=== PATIENT | female | born 1990 | race Caucasian/White ===

== ENCOUNTER 2017-06-30 19:58 | Emergency (ER) | payer MEDICAID ==
--- NOTE | 2017-06-30 20:53 | EDM.PDOC ---
ED HPI GENERAL MEDICAL PROBLEM - General Chief Complaint: Abdominal Pain Stated Complaint: SEVERE ABD PAIN Time Seen by Provider: 06/30/17 20:30 Source of Information: Reports: Patient History Limitations: Reports: No Limitations - History of Present Illness INITIAL COMMENTS - FREE TEXT/NARRATIVE: 27-year-old female who has had some chronic recurring abdominal pain for several months presents today with one of her "worst days". She has chronic diarrhea with an occasional fairly normal bowel movement. She had a recent colonoscopy which was normal. No fevers or chills. The pain tends to be from the epigastric through the middle of the abdomen down to the suprapubic area, no distention or radiation of pain to the back on a consistent basis. Onset: Unknown/Unsure Severity: Mild Associated Symptoms: Denies: Fever/Chills, Malaise, Nausea/Vomiting, Shortness of Breath epigastric Pain Score (Numeric/FACES): 5 - Related Data Allergies Allergy/AdvReac Type Severity Reaction Status Date / Time No Known Allergies Allergy Verified 06/30/17 20:19 Home Meds: Home Meds NK [No Known Home Meds] 02/25/14 [History] Past Medical History - Past Health History Medical/Surgical History: Denies Medical/Surgical History Gastrointestinal History: Reports: Chronic Diarrhea Endocrine/Metabolic History: Reports: Obesity/BMI 30+ - Infectious Disease History Infectious Disease History: Reports: Chicken Pox - Past Surgical History GI Surgical History: Reports: Colonoscopy Social & Family History - Tobacco Use Smoking Status *Q: Current Every Day Smoker Years of Tobacco use: 8 Packs/Tins Daily: 0.5 - Caffeine Use Caffeine Use: Reports: Coffee, Energy Drinks, Soda - Alcohol Use Days Per Week of Alcohol Use: 2 Number of Drinks Per Day: 3 Total Drinks Per Week: 6 - Recreational Drug Use Recreational Drug Use: No ED ROS GENERAL - Review of Systems Review Of Systems: See Below Constitutional: Reports: Malaise. Denies: Fever, Chills Respiratory: Denies: Shortness of Breath Cardiovascular: Denies: Chest Pain GI/Abdominal: Reports: Abdominal Pain, Diarrhea. Denies: Nausea, Vomiting : Reports: No Symptoms Skin: Reports: No Symptoms Neurological: Denies: Headache Psychiatric: Reports: No Symptoms ED EXAM, GI/ABD - Physical Exam Exam: See Below Exam Limited By: No Limitations General Appearance: Alert, No Apparent Distress Eyes: Bilateral: Normal Appearance (No jaundice) Head: Atraumatic Respiratory/Chest: No Respiratory Distress GI/Abdominal Exam: Soft, Tender (Reacts with tenderness to palpation from the epigastric area to the central abdomen, no guarding or rebound) Extremities: No: Pedal Edema Neurological: Alert, Oriented, Normal Cognition Psychiatric: Normal Affect, Normal Mood Skin Exam: Warm, Dry, No Rash Course - Vital Signs Last Recorded V/S: Last Vital Signs Temp 101.1 F H 06/30/17 23:18 Pulse 78 06/30/17 23:18 Resp 17 06/30/17 23:18 BP 122/62 06/30/17 23:18 Pulse Ox 100 06/30/17 23:18 - Orders/Labs/Meds Orders: Active Orders 24 hr Category Date Time Status Abdomen Pelvis w Cont [CT] Stat Exams 06/30/17 21:27 Taken Labs: Laboratory Tests 06/30/17 06/30/17 06/30/17 Range/Units 20:56 20:56 21:55 WBC 9.3 (4.5-11.0) K/uL RBC 4.79 (3.30-5.50) M/uL Hgb 13.5 (12.0-15.0) g/dL Hct 41.6 (36.0-48.0) % MCV 87 (80-98) fL MCH 28 (27-31) pg MCHC 33 (32-36) % Plt Count 217 (150-400) K/uL Neut % (Auto) 84 H (36-66) % Lymph % (Auto) 8 L (24-44) % [place] % (Auto) 6 (2-6) % Eos % (Auto) 2 (2-4) % Baso % (Auto) 0 (0-1) % Sodium 140 (140-148) mmol/L Potassium 4.1 (3.6-5.2) mmol/L Chloride 106 (100-108) mmol/L Carbon Dioxide 27 (21-32) mmol/L Anion Gap 6.9 (5.0-14.0) mmol/L BUN 14 D (7-18) mg/dL Creatinine 0.9 (0.6-1.0) mg/dL Est Cr Clr Drug Dosing 85.24 mL/min Estimated GFR (MDRD) > 60 (>60) Glucose 99 (74-106) mg/dL Calcium 8.4 L (8.5-10.1) mg/dL Total Bilirubin 0.7 D (0.2-1.0) mg/dL AST 19 (15-37) U/L ALT 34 (12-78) U/L Alkaline Phosphatase 51 (46-116) U/L Total Protein 7.1 (6.4-8.2) g/dL Albumin 3.5 (3.4-5.0) g/dL Globulin 3.6 H (2.3-3.5) g/dL Albumin/Globulin Ratio 1.0 L (1.2-2.2) Amylase 63 (25-115) U/L Lipase 118 (73-393) U/L HCG, Qual Negative Meds: Medications Discontinued Medications Generic Name Dose Route Start Last Admin Trade Name Freq PRN Reason Stop Dose Admin Sodium Chloride 85 mls @ 3.5 mls/sec 06/30/17 22:00 06/30/17 22:19 Normal Saline IV 3.5 mls/sec ASDIRECTED PRATIK Administration Iopamidol 150 ml 06/30/17 21:57 06/30/17 22:19 Isovue-300 (61%) IV 07/01/17 21:58 150 ml . DIRECTED PRN Administration RADIOLOGY EXAM Sodium Chloride 10 ml 06/30/17 21:57 06/30/17 22:19 Saline Flush FLUSH 10 ml ONETIME PRN Administration per radiology protocol - Re-Assessments/Exams Free Text/Narrative Re-Assessment/Exam: 06/30/17 22:21 CBC, CMP, amylase, lipase, serum were obtained. 06/30/17 22:21 Labs were all basically normal. A CT of the abdomen and pelvis with IV contrast was then obtained. 06/30/17 23:42 CT was completely normal. Patient will try a trial of daily omeprazole for 2-3 weeks Departure - Departure Time of Disposition: 23:35 Disposition: Home, Self-Care 01 Condition: Good Clinical Impression: Abdominal pain Qualifiers: Abdominal location: epigastric Qualified Code(s): R10.13 - Epigastric pain - Discharge Information Instructions: Abdominal Pain, Adult, [id number] Referrals: PCP,None [Primary Care Provider] - Forms: ED Department Discharge Care Plan Goals: Try 1 dose of omeprazole daily 20 minutes before eating your first meal. Take consistently for at least 2-3 weeks. Recheck with a primary physician in the next 2-3 weeks for follow-up. Return sooner if worsening or concerns. - My Orders Last 24 Hours: My Active Orders 06/30/17 21:27 Abdomen Pelvis w Cont [CT] Stat - Assessment/Plan Last 24 Hours: My Active Orders 06/30/17 21:27 Abdomen Pelvis w Cont [CT] Stat
[2017-06-30] MEDS ORDERED: Sodium Chloride 0.9% 10 ML Syringe FLUSH PRN (21:57)
[2017-06-30] MEDS ORDERED: Iopamidol 612 MG/ML 150 ML Bottle IV PRN (21:57)
[2017-06-30 23:19] VITALS: BP 122/62
== END 2017-06-30 23:35 | disposition home or self-care (01) ==
LOC: JP.ED 19:58
DX: R10.13 Epigastric pain (principal); F17.210 Nicotine dependence, cigarettes, uncomplicated; E66.9 Obesity, unspecified
CPT/HCPCS: 36415; 74177; 80053; 82150; 83690; 84703; 85025; 99284; J7030; J7050

== ENCOUNTER 2017-11-26 12:00 | Emergency (ER) | payer MEDICAID ==
[2017-11-26] MEDS ORDERED: Sodium Chloride 0.9% 10 ML Syringe FLUSH PRN (12:38)
[2017-11-26] MEDS ORDERED: Sodium Chloride 0.9% 1,000 ML IV SCH (13:30)
[2017-11-26 13:35] VITALS: BP 130/70
--- NOTE | 2017-11-26 13:45 | CT ---
Head wo Cont CLINICAL HISTORY: Headache, blurred vision, confusion COMPARISON: None TECHNIQUE: Transverse scans were obtained from the base of the skull through the vertex without IV co ntrast on a multislice, multidetector CT scanner. Auto dosage reduction and iterative reconstruction techniques employed. FINDINGS: No focal abnormal parenchymal density is identified. There is no mass effect, hemorrhage, o r extraaxial collection. The basal cisterns and sulci over the convexities are essentially normal. Th e ventricles are normal for age. IMPRESSION: Normal noncontrast CT brain for age
[2017-11-26] MEDS ORDERED: Ketorolac 30 MG/ML SDV IVPUSH ONE (14:15)
--- NOTE | 2017-11-26 14:21 | EDM.PDOC ---
ED HPI GENERAL MEDICAL PROBLEM - General Chief Complaint: Headache Stated Complaint: HEADACHE,BLURRED VISION Time Seen by Provider: 11/26/17 12:30 Source of Information: Reports: Patient History Limitations: Reports: No Limitations - History of Present Illness INITIAL COMMENTS - FREE TEXT/NARRATIVE: pt arrived with a history of a left sided headache. She had blurred vision at this time. She felt like she was confused. She was much btter on arrival. Her headache was down to a 2. At the time of the incident she had some tingling in her rt arm. She was not nauseated and she did not vomit. She hs normal vision at this time. She does have a history of a migraine. Onset: Today, Sudden, Other ( Pt was at work and felt like she did not know what was going on. ) Duration: Minutes:, Other ( The situation was clearing by the time she arrived. ) Location: Reports: Head, Lower Extremity, Right, Other (pt did have a left sided headache. ) Associated Symptoms: Reports: Confusion, Headaches Left Headache Pain Score (Numeric/FACES): 3 - Related Data Allergies Allergy/AdvReac Type Severity Reaction Status Date / Time No Known Allergies Allergy Verified 06/30/17 20:19 Home Meds: Home Meds NK [No Known Home Meds] 02/25/14 [History] Past Medical History - Past Health History Medical/Surgical History: Denies Medical/Surgical History Gastrointestinal History: Reports: Chronic Diarrhea Neurological History: Reports: Migraines Endocrine/Metabolic History: Reports: Obesity/BMI 30+ - Infectious Disease History Infectious Disease History: Reports: Chicken Pox - Past Surgical History GI Surgical History: Reports: Colonoscopy Social & Family History - Tobacco Use Smoking Status *Q: Heavy Tobacco Smoker Years of Tobacco use: 10 Packs/Tins Daily: 0.5 - Caffeine Use Caffeine Use: Reports: None - Alcohol Use Days Per Week of Alcohol Use: 2 Number of Drinks Per Day: 3 Total Drinks Per Week: 6 - Recreational Drug Use Recreational Drug Use: No ED ROS GENERAL - Review of Systems Review Of Systems: See Below Constitutional: Reports: No Symptoms HEENT: Reports: Vision Change Respiratory: Reports: No Symptoms Cardiovascular: Reports: No Symptoms Endocrine: Reports: No Symptoms GI/Abdominal: Reports: No Symptoms : Reports: No Symptoms Musculoskeletal: Reports: No Symptoms Skin: Reports: No Symptoms - Physical Exam Exam: See Below Text/Narrative:: Pt had a sudden on set of a headache, confusion and blurred vision. She did have tingling in the left arm. Exam Limited By: No Limitations General Appearance: Alert, Anxious, Moderate Distress, Other (Pain was being rated down at a 2. pupils are equal and reactive. ) Ears: Normal TMs Nose: Normal Inspection Throat/Mouth: Normal Inspection Head Exam: Atraumatic Neck: Normal Inspection Respiratory/Chest: No Respiratory Distress Cardiovascular: Regular Rate, Rhythm GI/Abdominal: Soft, Non-Tender (Female) Exam: Deferred Rectal (Female) Exam: Deferred Neuro Exam (Abbreviated): Alert, Oriented, Normal Cognition, Other (pt had been mildly confused earlier. ) Back Exam: Normal Inspection Extremities: Normal Inspection Psychiatric: Normal Affect Course - Vital Signs Last Recorded V/S: Last Vital Signs Temp 37.2 C 11/26/17 12:29 Pulse 55 L 11/26/17 13:34 Resp 14 11/26/17 13:34 BP 130/70 11/26/17 13:34 Pulse Ox 99 11/26/17 13:34 - Orders/Labs/Meds Orders: Active Orders 24 hr Category Date Time Status UA W/MICROSCOPIC [URIN] Urgent Lab 11/26/17 14:04 Ordered Saline Lock Insert [OM.PC] Routine Oth 11/26/17 12:38 Ordered Labs: Laboratory Tests 11/26/17 11/26/17 11/26/17 Range/Units 12:40 12:40 14:04 WBC 7.5 (4.5-11.0) K/uL RBC 4.75 (3.30-5.50) M/uL Hgb 13.0 (12.0-15.0) g/dL Hct 40.3 (36.0-48.0) % MCV 85 (80-98) fL MCH 27 (27-31) pg MCHC 32 (32-36) % Plt Count 274 (150-400) K/uL Neut % (Auto) 56 (36-66) % Lymph % (Auto) 29 (24-44) % [place] % (Auto) 11 H (2-6) % Eos % (Auto) 4 (2-4) % Baso % (Auto) 0 (0-1) % Sodium 142 (140-148) mmol/L Potassium 4.2 (3.6-5.2) mmol/L Chloride 106 (100-108) mmol/L Carbon Dioxide 27 (21-32) mmol/L Anion Gap 8.7 (5.0-14.0) mmol/L BUN 12 (7-18) mg/dL Creatinine 0.9 (0.6-1.0) mg/dL Est Cr Clr Drug Dosing 85.24 mL/min Estimated GFR (MDRD) > 60 (>60) Glucose 93 (74-106) mg/dL Calcium 8.6 (8.5-10.1) mg/dL Total Bilirubin 0.4 (0.2-1.0) mg/dL AST 13 L (15-37) U/L ALT 25 (12-78) U/L Alkaline Phosphatase 51 (46-116) U/L Total Protein 7.3 (6.4-8.2) g/dL Albumin 3.5 (3.4-5.0) g/dL Globulin 3.8 H (2.3-3.5) g/dL Albumin/Globulin Ratio 0.9 L (1.2-2.2) Urine Color Yellow Urine Appearance Clear Urine pH 6.0 (4.5-8.0) Ur Specific [place] 1.010 (1.008-1.030) Urine Protein Negative (NEGATIVE) mg/dL Urine Glucose (UA) Normal (NEGATIVE) mg/dL Urine Ketones Negative (NEGATIVE) mg/dL Urine Occult Blood Negative (NEGATIVE) Urine Nitrite Negative (NEGATIVE) Urine Bilirubin Negative (NEGATIVE) Urine Urobilinogen Normal (NORMAL) mg/dL Ur Leukocyte Esterase Negative (NEGATIVE) Urine RBC 0-5 (0-5) Urine WBC 0-5 (0-5) Ur Epithelial Cells Few Amorphous Sediment Not seen Urine Bacteria Rare Urine Mucus Not seen Meds: Medications Discontinued Medications Generic Name Dose Route Start Last Admin Trade Name Freq PRN Reason Stop Dose Admin Sodium Chloride 1,000 mls @ 999 mls/hr 11/26/17 13:30 11/26/17 13:32 Normal Saline IV 999 mls/hr ASDIRECTED PRATIK Administration Ketorolac Tromethamine 30 mg 11/26/17 14:15 11/26/17 14:18 Toradol IVPUSH 11/26/17 14:16 30 mg ONETIME ONE Administration Sodium Chloride 10 ml 11/26/17 12:38 11/26/17 12:46 Saline Flush FLUSH 10 ml ASDIRECTED PRN Administration Keep Vein Open - Re-Assessments/Exams Free Text/Narrative Re-Assessment/Exam: 11/26/17 14:25 pt had a cat scan of the head which was normal . Her lab work was normal. She is much more comfortable. Departure - Departure Time of Disposition: 15:05 Disposition: Home, Self-Care 01 Condition: Fair Clinical Impression: Migraine headache - Discharge Information Instructions: Migraine Headache Referrals: PCP,None [Primary Care Provider] - Forms: ED Department Discharge Care Plan Goals: rtc for MRI of the head, schedule a follow up appt with Marissa sierra or sat of next week. rtc if increased problems. - My Orders Last 24 Hours: My Active Orders 11/26/17 12:38 Saline Lock Insert [OM.PC] Routine 11/26/17 14:04 UA W/MICROSCOPIC [URIN] Urgent - Assessment/Plan Last 24 Hours: My Active Orders 11/26/17 12:38 Saline Lock Insert [OM.PC] Routine 11/26/17 14:04 UA W/MICROSCOPIC [URIN] Urgent
== END 2017-11-26 15:02 | disposition home or self-care (01) ==
LOC: JP.ED 12:00
DX: G43.909 Migraine, unspecified, not intractable, without status migrainosus (principal); F17.210 Nicotine dependence, cigarettes, uncomplicated; E66.9 Obesity, unspecified
CPT/HCPCS: 36415; 70450; 80053; 81001; 85025; 96374; 99284; J1885; J7040; J7050

== ENCOUNTER 2018-01-02 23:32 | Emergency (ER) | payer MEDICAID ==
[2018-01-02 23:57] VITALS: BP 149/86
--- NOTE | 2018-01-03 01:22 | EDM.PDOC ---
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 She reports went to the bathroom, had tinged pink blood on toilet tissue, then past a tiny clot. she is taking pogesterone po daily. last clinic appointment with Winifred Brand, nurse cell coverer on 01/01/18 scheduled for OB Ultrasound after 01/13/18. Onset: Today Duration: Hour(s): Location: Reports: Abdomen Quality: Reports: Other (denies any cramping or low back pain.) Improves with: Reports: None Worsens with: Reports: None Associated Symptoms: Reports: No Other Symptoms - Related Data Allergies Allergy/AdvReac Type Severity Reaction Status Date / Time No Known Allergies Allergy Verified 06/30/17 20:19 Home Meds: Home Meds NK [No Known Home Meds] 02/25/14 [History] Past Medical History - Past Health History Medical/Surgical History: Denies Medical/Surgical History Gastrointestinal History: Reports: Chronic Diarrhea Neurological History: Reports: Migraines Endocrine/Metabolic History: Reports: Obesity/BMI 30+ - Infectious Disease History Infectious Disease History: Reports: Chicken Pox - Past Surgical History GI Surgical History: Reports: Colonoscopy Social & Family History - Tobacco Use Smoking Status *Q: Former Smoker Used Tobacco, but Quit: Yes Month/Year Tobacco Last Used: december 2017 - Caffeine Use Caffeine Use: Reports: None - Recreational Drug Use Recreational Drug Use: No - Living Situation & Occupation Living situation: Reports: with Significant Other ED ROS GENERAL - Review of Systems Review Of Systems: See Below Constitutional: Reports: No Symptoms GI/Abdominal: Reports: No Symptoms : Reports: Other (tinged pink discharge on tissue) Musculoskeletal: Reports: No Symptoms Skin: Reports: No Symptoms Neurological: Reports: No Symptoms Psychiatric: Reports: No Symptoms Hematologic/Lymphatic: Reports: No Symptoms Immunologic: Reports: No Symptoms ED EXAM, GI/ABD - Physical Exam Exam: See Below Exam Limited By: No Limitations General Appearance: Alert, WD/WN, No Apparent Distress Eyes: Bilateral: Normal Appearance, EOMI Ears: Normal External Exam, Normal Canal, Hearing Grossly Normal, Normal TMs Nose: Normal Inspection, Normal Mucosa, No Blood Throat/Mouth: Normal Inspection, Normal Lips, Normal Teeth, Normal Gums, Normal Oropharynx, Normal Voice, No Airway Compromise Head: Atraumatic, Normocephalic Neck: Normal Inspection, Supple, Non-Tender, Full Range of Motion Respiratory/Chest: No Respiratory Distress, Lungs Clear, Normal Breath Sounds, No Accessory Muscle Use, Chest Non-Tender Cardiovascular: Normal Peripheral Pulses, Regular Rate, Rhythm, No Edema, No Gallop, No JVD, No Murmur, No Rub GI/Abdominal Exam: Normal Bowel Sounds, Soft, Non-Tender, No Organomegaly, No Distention, No Abnormal Bruit, No Mass, Pelvis Stable (Female) Exam: Deferred Rectal (Female) Exam: Deferred Back Exam: Normal Inspection, Full Range of Motion, NT Extremities: Normal Inspection, Normal Range of Motion, Non-Tender, Normal Capillary Refill, No Pedal Edema Neurological: No Motor/Sensory Deficits Psychiatric: Normal Affect, Normal Mood Skin Exam: Warm, Dry, Intact, Normal Color, No Rash Lymphatic: No Adenopathy Course - Vital Signs Last Recorded V/S: Last Vital Signs Temp 36.7 C 01/02/18 23:56 Pulse 60 01/02/18 23:56 Resp 16 01/02/18 23:56 BP 149/86 H 01/02/18 23:56 Pulse Ox 100 01/02/18 23:56 - Orders/Labs/Meds Orders: Active Orders 24 hr Category Date Time Status UA W/MICROSCOPIC [URIN] Urgent Lab 01/03/18 00:43 Ordered Labs: Laboratory Tests 01/03/18 01/03/18 01/03/18 Range/Units 00:36 00:36 00:36 WBC 9.6 (4.5-11.0) K/uL RBC 4.68 (3.30-5.50) M/uL Hgb 12.9 (12.0-15.0) g/dL Hct 39.8 (36.0-48.0) % MCV 85 (80-98) fL MCH 28 (27-31) pg MCHC 32 (32-36) % Plt Count 298 (150-400) K/uL Neut % (Auto) 57 (36-66) % Lymph % (Auto) 29 (24-44) % [place] % (Auto) 11 H (2-6) % Eos % (Auto) 3 (2-4) % Baso % (Auto) 0 (0-1) % Sodium 140 (140-148) mmol/L Potassium 3.5 L (3.6-5.2) mmol/L Chloride 105 (100-108) mmol/L Carbon Dioxide 28 (21-32) mmol/L Anion Gap 10.5 (5.0-14.0) mmol/L BUN 7 (7-18) mg/dL Creatinine 0.9 (0.6-1.0) mg/dL Est Cr Clr Drug Dosing 85.24 mL/min Estimated GFR (MDRD) > 60 (>60) Glucose 107 H (74-106) mg/dL Calcium 8.9 (8.5-10.1) mg/dL HCG, Quant 1650 H (0-6) mIU/mL Urine Color Urine Appearance Urine pH (4.5-8.0) Ur Specific [place] (1.008-1.030) Urine Protein (NEGATIVE) mg/dL Urine Glucose (UA) (NEGATIVE) mg/dL Urine Ketones (NEGATIVE) mg/dL Urine Occult Blood (NEGATIVE) Urine Nitrite (NEGATIVE) Urine Bilirubin (NEGATIVE) Urine Urobilinogen (NORMAL) mg/dL Ur Leukocyte Esterase (NEGATIVE) Urine RBC (0-5) Urine WBC (0-5) Ur Epithelial Cells Amorphous Sediment Urine Bacteria Urine Mucus 01/03/18 Range/Units 00:43 WBC (4.5-11.0) K/uL RBC (3.30-5.50) M/uL Hgb (12.0-15.0) g/dL Hct (36.0-48.0) % MCV (80-98) fL MCH (27-31) pg MCHC (32-36) % Plt Count (150-400) K/uL Neut % (Auto) (36-66) % Lymph % (Auto) (24-44) % [place] % (Auto) (2-6) % Eos % (Auto) (2-4) % Baso % (Auto) (0-1) % Sodium (140-148) mmol/L Potassium (3.6-5.2) mmol/L Chloride (100-108) mmol/L Carbon Dioxide (21-32) mmol/L Anion Gap (5.0-14.0) mmol/L BUN (7-18) mg/dL Creatinine (0.6-1.0) mg/dL Est Cr Clr Drug Dosing mL/min Estimated GFR (MDRD) (>60) Glucose (74-106) mg/dL Calcium (8.5-10.1) mg/dL HCG, Quant (0-6) mIU/mL Urine Color Yellow Urine Appearance Clear Urine pH 5.0 (4.5-8.0) Ur Specific [place] 1.020 (1.008-1.030) Urine Protein Negative (NEGATIVE) mg/dL Urine Glucose (UA) Normal (NEGATIVE) mg/dL Urine Ketones Negative (NEGATIVE) mg/dL Urine Occult Blood Moderate (NEGATIVE) Urine Nitrite Negative (NEGATIVE) Urine Bilirubin Negative (NEGATIVE) Urine Urobilinogen Normal (NORMAL) mg/dL Ur Leukocyte Esterase Negative (NEGATIVE) Urine RBC 0-5 (0-5) Urine WBC 0-5 (0-5) Ur Epithelial Cells Few Amorphous Sediment Not seen Urine Bacteria Few Urine Mucus Not seen - Re-Assessments/Exams Free Text/Narrative Re-Assessment/Exam: 01/03/18 01:25 labs; cbc and chemistry normal urine negative for infection quant hcg pending v 01/03/18 01:44 quant hcg 12/30/17: 303 01/01/18: 694 01/03/18: 1650 discussed with Ms. Dasilva, this is reassuring. advise to go home, rest, pelvic rest, drink 8 to 10 glasses of water per day, call her OB in am. Ms. Dasilva and her Partner agree with plan of care. Departure - Departure Time of Disposition: 01:50 Disposition: Home, Self-Care 01 Condition: Good Clinical Impression: Spotting affecting in first trimester - Discharge Information Instructions: Vaginal Bleeding During , First Trimester Referrals: PCP,None [Primary Care Provider] - Forms: ED Department Discharge Care Plan Goals: potting in -pelvic rest for next 10 days -drink plenty of water, 8 to 10 glasses per day -eat healthy -take medications as prescribed follow up with Primary OB provider in am return to ER for any shaking chills, increase pain, cramping, sudden gush of fluids, or any concerns. - Problem List & Annotations (1) Spotting affecting in first trimester SNOMED Code(s): 699056159, 817767459, [id number] Code(s): O26.851 - SPOTTING COMPLICATING , FIRST TRIMESTER Status : Acute Priority: High Current Visit: Yes - Problem List Review Problem List Initiated/Reviewed/Updated: Yes - My Orders Last 24 Hours: My Active Orders 01/03/18 00:43 UA W/MICROSCOPIC [URIN] Urgent - Assessment/Plan Last 24 Hours: My Active Orders 01/03/18 00:43 UA W/MICROSCOPIC [URIN] Urgent Plan: Spotting in -pelvic rest for next 10 days -drink plenty of water, 8 to 10 glasses per day -eat healthy -take medications as prescribed follow up with Primary OB provider in am return to ER for any shaking chills, increase pain, cramping, sudden gush of fluids, or any concerns.
== END 2018-01-03 02:00 | disposition home or self-care (01) ==
LOC: JP.ED 23:32
DX: O26.851 Spotting complicating pregnancy, first trimester (principal); Z3A.01 Less than 8 weeks gestation of pregnancy; Z87.891 Personal history of nicotine dependence
CPT/HCPCS: 36415; 80048; 81001; 84702; 85025; 99284

== ENCOUNTER 2018-12-27 20:38 | Emergency (ER) | payer MEDICAID, OTHER ==
[2018-12-27 20:57] VITALS: BP 139/85
[2018-12-27] MEDS ORDERED: Ketorolac 60 MG/2 ML SDV IM ONE (21:01)
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
--- NOTE | 2018-12-27 21:35 | CRLCR ---
HISTORY: Right wrist pain, injury. TECHNIQUE: Three views of the right wrist. COMPARISON: No prior. FINDINGS: No acute fracture. Ulnar minus variance. Alignment is otherwise maintained. No radiopaque foreign body or soft tissue gas. No erosive change. IMPRESSION: 1. No acute fracture. 2. Ulnar minus variance. Dictated by Gary Bennett MD @ 12/27/2018 9:32:44 PM Dictated by: Gary Bennett MD @ 12/27/2018 21:32:51 (Electronically Signed)
== END 2018-12-27 21:30 | disposition home or self-care (01) ==
LOC: JP.ED 20:38
DX: S63.501A Unspecified sprain of right wrist, initial encounter (principal); F17.210 Nicotine dependence, cigarettes, uncomplicated; F32.9 Major depressive disorder, single episode, unspecified; V89.2XXA Person injured in unspecified motor-vehicle accident, traffic, initial encounter
CPT/HCPCS: 73110; 96372; 99283; J1885

== ENCOUNTER 2019-11-01 21:46 | Emergency (ER) | payer OTHER ==
[2019-11-01 21:58] VITALS: BP 110/50; PULSE 62
--- NOTE | 2019-11-01 23:01 | EDM.PDOC ---
ED HPI GENERAL MEDICAL PROBLEM - General Chief Complaint: Respiratory Problem Stated Complaint: SHORTNESS OF BREATH Time Seen by Provider: 11/01/19 22:10 Source of Information: Reports: Patient, Family History Limitations: Reports: No Limitations - History of Present Illness INITIAL COMMENTS - FREE TEXT/NARRATIVE: 29-year-old female arrives with intermittent shortness of breath, palpitations with activity, and has had several episodes of rectal bleeding over the past 24 hours. She has no pain, no fevers, no cough. She is under a lot of stress and has anxiety. Onset: Unknown/Unsure (For the past several days) Associated Symptoms: Reports: Malaise, Shortness of Breath (Especially with activity). 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: Neurological History: Reports: Migraines Psychiatric History: Reports: Anxiety, Depression, Suicide Attempt Endocrine/Metabolic History: Reports: Obesity/BMI 30+ Dermatologic History: Reports: Eczema - Infectious Disease History Infectious Disease History: Reports: Chicken Pox - Past Surgical History GI Surgical History: Reports: Colonoscopy Social & Family History - Tobacco Use Smoking Status *Q: Current Every Day Smoker Years of Tobacco use: 10 Packs/Tins Daily: 0.3 Second Hand Smoke Exposure: Yes - Caffeine Use Caffeine Use: Reports: Energy Drinks - Recreational Drug Use Recreational Drug Use: No - Living Situation & Occupation Living situation: Reports: with Significant Other ED ROS GENERAL - Review of Systems Review Of Systems: See Below Constitutional: Reports: Malaise. Denies: Fever, Chills HEENT: Denies: Vision Change Respiratory: Reports: Shortness of Breath. Denies: Wheezing Cardiovascular: Denies: Chest Pain GI/Abdominal: Reports: Other (Rectal bleeding). Denies: Abdominal Pain, Nausea , Vomiting : Reports: No Symptoms Skin: Reports: No Symptoms ED EXAM, GENERAL - Physical Exam Exam: See Below Exam Limited By: No Limitations General Appearance: Alert, No Apparent Distress Eye Exam: Bilateral Eye: Normal Inspection Head: Atraumatic Respiratory/Chest: No Respiratory Distress, Lungs Clear Cardiovascular: Regular Rate, Rhythm GI/Abdominal: Soft, Non-Tender Extremities: Normal Inspection Neurological: Alert, Oriented Psychiatric: Anxious Skin Exam: Warm, Dry Course - Vital Signs Last Recorded V/S: Last Vital Signs Temp 96.9 F 11/01/19 22:10 Pulse 62 11/01/19 22:10 Resp 16 11/01/19 22:10 BP 110/50 L 11/01/19 22:10 Pulse Ox 98 11/01/19 22:10 - Orders/Labs/Meds Labs: Laboratory Tests 11/01/19 Range/Units 22:55 WBC 8.2 (4.5-11.0) K/uL RBC 4.58 (3.30-5.50) M/uL Hgb 12.5 (12.0-15.0) g/dL Hct 39.3 (36.0-48.0) % MCV 86 (80-98) fL MCH 27 (27-31) pg MCHC 32 (32-36) % Plt Count 254 (150-400) K/uL Neut % (Auto) 55 (36-66) % Lymph % (Auto) 34 (24-44) % [place] % (Auto) 9 H (2-6) % Eos % (Auto) 3 (2-4) % Baso % (Auto) 0 (0-1) % - Re-Assessments/Exams Free Text/Narrative Re-Assessment/Exam: 11/01/19 23:09 CBC was drawn and is completely normal. Patient had rectal bleeding 2 years ago , it was followed by a colonoscopy which was completely normal. No further work -up necessary unless bleeding persists. Return if worsening or concerns. Departure - Departure Time of Disposition: 23:37 Disposition: Home, Self-Care 01 Clinical Impression: Short of breath on exertion, Rectal bleed - Discharge Information Instructions: Shortness of Breath, Adult, [id number] Referrals: PCP,None [Primary Care Provider] - Forms: ED Department Discharge Care Plan Goals: Recheck in 2 to 3 days if bleeding persists or you develop other concerns. Otherwise increase activity as tolerated, try to decrease smoking and return anytime if you feel you are worsening. Sepsis Event Note - Evaluation Sepsis Screening Result: No Definite Risk - Focused Exam Vital Signs: Vital Signs Temp Pulse Resp BP Pulse Ox 11/01/19 22:10 96.9 F 62 16 110/50 L 98 11/01/19 21:57 96.9 F 62 16 110/50 L 98 Date Exam was Performed: 11/02/19 Time Exam was Performed: 00:21
== END 2019-11-01 23:38 | disposition home or self-care (01) ==
LOC: JP.ED 21:46
DX: R06.02 Shortness of breath (principal); K62.5 Hemorrhage of anus and rectum; F17.210 Nicotine dependence, cigarettes, uncomplicated; F41.9 Anxiety disorder, unspecified; F32.9 Major depressive disorder, single episode, unspecified; E66.9 Obesity, unspecified; Z79.899 Other long term (current) drug therapy
CPT/HCPCS: 36415; 85025; 99284

== ENCOUNTER 2020-12-31 20:08 | Emergency (ER) | payer MEDICAID ==
[2020-12-31 20:25] VITALS: BP 136/70; PULSE 72
--- NOTE | 2020-12-31 20:58 | EDM.PDOC ---
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 She states she has no cramping there was no gush of fluid may be had some trauma as another child in the house did jump on her abdomen. 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: Reports: , Spontaneous Neurological History: Reports: Migraines Psychiatric History: Reports: Anxiety, Depression, Suicide Attempt Endocrine/Metabolic History: Reports: Obesity/BMI 30+ Immunologic History: Reports: None Oncologic (Cancer) History: Reports: None Dermatologic History: Reports: Eczema, None - Infectious Disease History Infectious Disease History: Reports: Chicken Pox, Influenza - Past Surgical History HEENT Surgical History: Reports: None Cardiovascular Surgical History: Reports: None GI Surgical History: Reports: Colonoscopy, None Social & Family History - Family History Family Medical History: No Pertinent Family History - Tobacco Use Tobacco Use Status *Q: Never Tobacco User - Caffeine Use Caffeine Use: Reports: Soda Caffeine Use Comment: lyndsay - Recreational Drug Use Recreational Drug Use: No - Living Situation & Occupation Living situation: Reports: with Significant Other ED ROS GENERAL - Review of Systems Review Of Systems: See Below Constitutional: Reports: No Symptoms Respiratory: Reports: No Symptoms Cardiovascular: Reports: No Symptoms GI/Abdominal: Reports: No Symptoms : Reports: Irregular Menses ED EXAM - Physical Exam Exam: See Below Text/Narrative:: Abdomen is soft nontender bedside ultrasound reveals good heart tones good movement Exam Limited By: No Limitations General Appearance: Alert, WD/WN, No Apparent Distress Course - Vital Signs Last Recorded V/S: Last Vital Signs Temp 97.7 F 12/31/20 20:30 Pulse 72 12/31/20 20:30 Resp 24 H 12/31/20 20:30 BP 136/70 12/31/20 20:30 Pulse Ox 97 12/31/20 20:30 - Orders/Labs/Meds Orders: Active Orders 24 hr Category Date Time Status OB Ltd 1 or More Fetus [US] Stat Exams 12/31/20 20:48 Ordered Departure - Departure Time of Disposition: 22:04 Disposition: Home, Self-Care 01 Condition: Fair Clinical Impression: Vaginal bleeding affecting early - Discharge Information Instructions: Vaginal Bleeding During , First Trimester, [id number] Referrals: PCP,None [Primary Care Provider] - Forms: ED Department Discharge Additional Instructions: Continue with your regular medications please follow-up with your DITCH WORKER this week, Sepsis Event Note (ED) - Evaluation Sepsis Screening Result: No Definite Risk - Focused Exam Vital Signs: Vital Signs Temp Pulse Resp BP Pulse Ox 12/31/20 20:30 97.7 F 72 24 H 136/70 97 12/31/20 20:23 97.7 F 72 24 H 136/70 97 - My Orders Last 24 Hours: My Active Orders 12/31/20 20:48 OB Ltd 1 or More Fetus [US] Stat - Assessment/Plan Last 24 Hours: My Active Orders 12/31/20 20:48 OB Ltd 1 or More Fetus [US] Stat Plan: Assessment Acuity = acute Site and laterality = vaginal bleeding first trimester Etiology = unknown history of subchorionic hemorrhage at 10-week ultrasound Manifestations = none Location of injury = Home Lab values = ultrasound shows good movement good heart tone 12 weeks 4 days intrauterine gestation no subchorionic hemorrhage was appreciated as in prior ultrasound Plan She is O+ blood type, have her follow-up with her DITCH WORKER this week This note was dictated using [email or web address] voice recognition software please call with any questions on syntax or grammar.
--- NOTE | 2021-01-02 09:31 | US ---
INDICATION: vaginal bleeding COMPARISON: None FINDINGS: Single live IUP at 12 weeks 4 days by crown-rump length of 6.0 cm heart rate: 165 BPM. PARESH is 07/11/2021 No yolk sac seen Other findings: Normal right ovary. Left ovary not identified. No free fluid seen IMPRESSION: Single live IUP at 12 weeks 4 days PARESH is 07/11/2021
== END 2020-12-31 22:13 | disposition home or self-care (01) ==
LOC: JP.ED 20:08
DX: O20.9 Hemorrhage in early pregnancy, unspecified (principal); Z3A.12 12 weeks gestation of pregnancy
CPT/HCPCS: 76801; 76801-26; 99284-25

== ENCOUNTER 2021-01-20 18:16 | Emergency (ER) | payer MEDICAID ==
[2021-01-20 18:43] VITALS: BP 147/74; PULSE 79
--- NOTE | 2021-01-20 19:20 | EDM.PDOC ---
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 The symptoms started after her young son jumped on her belly. She got up after that and went to the bathroom and had a gush of blood. She has had some cramping since then. Patient became very concerned because she has a history of a miscarriage previously. She denies any nausea or vomiting, cough or shortness of breath, chest pain or back pain, or urinary symptoms including urgency, frequency, or burning with urination. Her blood type is O+. She was seen at 12 weeks in the ED for vaginal bleeding as well. Her evaluation at that time was unremarkable. - Related Data Allergies Allergy/AdvReac Type Severity Reaction Status Date / Time No Known Allergies Allergy Verified 01/20/21 18:43 Home Meds: Home Meds Vit37/Iron/Folic Acid [Prenata] 1 each PO DAILY 12/01/20 [History] Sertraline [Zoloft] 100 mg PO DAILY 12/01/20 [History] Cetirizine [ZyrTEC] 1 tab PO DAILY 12/31/20 [History] Past Medical History - Past Health History Medical/Surgical History: Denies Medical/Surgical History HEENT History: Reports: None Cardiovascular History: Reports: None Respiratory History: Reports: None Gastrointestinal History: Reports: Chronic Diarrhea Genitourinary History: Reports: None 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: , Spontaneous Musculoskeletal History: Reports: None Neurological History: Reports: Migraines Psychiatric History: Reports: Anxiety, Depression, Suicide Attempt Endocrine/Metabolic History: Reports: Obesity/BMI 30+ Hematologic History: Reports: None Immunologic History: Reports: None Oncologic (Cancer) History: Reports: None Dermatologic History: Reports: Eczema, None - Infectious Disease History Infectious Disease History: Reports: Chicken Pox, Influenza - Past Surgical History HEENT Surgical History: Reports: None Cardiovascular Surgical History: Reports: None GI Surgical History: Reports: Colonoscopy, None Social & Family History - Family History Family Medical History: No Pertinent Family History - Tobacco Use Tobacco Use Status *Q: Never Tobacco User - Caffeine Use Caffeine Use: Reports: Soda Caffeine Use Comment: lyndsay - Living Situation & Occupation Living situation: Reports: with Significant Other ED ROS GENERAL - Review of Systems Review Of Systems: See Below Constitutional: Reports: No Symptoms HEENT: Reports: No Symptoms Respiratory: Reports: No Symptoms Cardiovascular: Reports: No Symptoms Endocrine: Reports: No Symptoms GI/Abdominal: Reports: No Symptoms : Reports: Other (Vaginal bleeding and cramping) Musculoskeletal: Reports: No Symptoms Skin: Reports: No Symptoms Neurological: Reports: No Symptoms Psychiatric: Reports: No Symptoms Hematologic/Lymphatic: Reports: No Symptoms Immunologic: Reports: No Symptoms ED EXAM - Physical Exam Exam: See Below Exam Limited By: No Limitations General Appearance: Alert, No Apparent Distress, Anxious, Obese GI/Abdominal Exam: Normal Bowel Sounds, Soft, Non-Tender Back Exam: Normal Inspection, Full Range of Motion Course - Vital Signs Last Recorded V/S: Last Vital Signs Temp 35.7 C L 01/20/21 18:42 Pulse 79 01/20/21 18:42 Resp 12 01/20/21 18:42 BP 147/74 H 01/20/21 18:42 Pulse Ox 99 01/20/21 18:42 - Orders/Labs/Meds Orders: Active Orders 24 hr Category Date Time Status CBC W/O DIFF,HEMOGRAM [HEME] Stat Lab 01/20/21 18:54 Ordered HCG QUANTITATIVE [CHEM] Stat Lab 01/20/21 18:54 Ordered - Re-Assessments/Exams Free Text/Narrative Re-Assessment/Exam: 01/20/21 19:14 I performed a limited bedside OB ultrasound for evaluation of vaginal bleeding. Images have been recorded and stored. Ultrasound revealed a single intrauterine that is quite active and the heart rate of 140 bpm determined by M-mode. The placenta is anterior and grade 1. There is no evidence for subchorionic hemorrhage. Biparietal dimension calculates at 15 weeks 5 days which is consistent with her dates. There is adequate amount of amniotic fluid. There is no evidence for placental overriding the cervix. We will check a CBC and beta-hCG quantitative. Not that that will change any of the management today but I would like the patient to follow-up with her INTELLIGENCE GROUP SUPERVISOR on Saturday for recheck. After blood was drawn patient was suitable for discharge in satisfactory condition. Departure - Departure Time of Disposition: 19:20 Disposition: Home, Self-Care 01 Clinical Impression: Second trimester bleeding - Discharge Information Instructions: Vaginal Bleeding During , Second Trimester, [id number] Referrals: Tessie Matamoros CNM [Primary Care Provider] - Care Plan Goals: I would like you to follow-up with your INTELLIGENCE GROUP SUPERVISOR on Saturday for a recheck. If you have any more substantial bleeding return to the ED for reevaluation. Sepsis Event Note (ED) - Evaluation Sepsis Screening Result: No Definite Risk - Focused Exam Vital Signs: Vital Signs Temp Pulse Resp BP Pulse Ox 01/20/21 18:42 35.7 C L 79 12 147/74 H 99 - Problem List & Annotations (1) Second trimester bleeding SNOMED Code(s): 573424804 Code(s): O46.92 - ANTEPARTUM HEMORRHAGE, UNSPECIFIED, SECOND TRIMESTER Status: Acute Priority: Medium Current Visit: Yes - Problem List Review Problem List Initiated/Reviewed/Updated: Yes - My Orders Last 24 Hours: My Active Orders 01/20/21 18:54 CBC W/O DIFF,HEMOGRAM [HEME] Stat HCG QUANTITATIVE [CHEM] Stat - Assessment/Plan Last 24 Hours: My Active Orders 01/20/21 18:54 CBC W/O DIFF,HEMOGRAM [HEME] Stat HCG QUANTITATIVE [CHEM] Stat
== END 2021-01-20 19:30 | disposition home or self-care (01) ==
LOC: JP.ED 18:16
DX: O20.9 Hemorrhage in early pregnancy, unspecified (principal); Z3A.15 15 weeks gestation of pregnancy
CPT/HCPCS: 36415; 85027; 99283; 99284

== ENCOUNTER 2021-06-01 13:33 | Emergency (ER) | payer SELFPAY ==
[2021-06-01 13:45] VITALS: BP 125/75; PULSE 79
[2021-06-01 14:43] LABS: CORONAVIRUS COVID-19 NAA POSITIVE (NEGATIVE)
--- NOTE | 2021-06-01 15:22 | EDM.PDOC ---
ED HPI GENERAL MEDICAL PROBLEM - General Chief Complaint: Respiratory Problem Stated Complaint: FEVER,THROWING UP,HEADACHE,COUGHING Time Seen by Provider: 06/01/21 15:19 Source of Information: Reports: Patient, RN Notes Reviewed History Limitations: Reports: No Limitations - History of Present Illness INITIAL COMMENTS - FREE TEXT/NARRATIVE: 31-year-old female presents emergency department today complaint of body aches had some nausea 1 bout of emesis generalized fatigue is concerned about Covid exposure, she is 32 weeks intrauterine gestation Lower Back Pain Score (Numeric/FACES): 1 - Related Data Allergies Allergy/AdvReac Type Severity Reaction Status Date / Time No Known Allergies Allergy Verified 06/01/21 13:50 Home Meds: Home Meds Vit37/Iron/Folic Acid [Prenata] 1 each PO DAILY 12/01/20 [History] Sertraline [Zoloft] 100 mg PO DAILY 12/01/20 [History] Past Medical History Gastrointestinal History: Reports: Chronic Diarrhea 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: Reports: , Spontaneous Musculoskeletal History: Reports: None Neurological History: Reports: Migraines Psychiatric History: Reports: Anxiety, Depression, Suicide Attempt Endocrine/Metabolic History: Reports: Obesity/BMI 30+ Hematologic History: Reports: None Immunologic History: Reports: None Oncologic (Cancer) History: Reports: None Dermatologic History: Reports: Eczema - Infectious Disease History Infectious Disease History: Reports: Chicken Pox, Influenza - Past Surgical History GI Surgical History: Reports: Colonoscopy Social & Family History - Family History Family Medical History: No Pertinent Family History - Tobacco Use Tobacco Use Status *Q: Former Tobacco User Used Tobacco, but Quit: Yes Month/Year Tobacco Last Used: 10/16 Second Hand Smoke Exposure: No - Caffeine Use Caffeine Use: Reports: None Caffeine Use Comment: lyndsay - Recreational Drug Use Recreational Drug Use: No - Living Situation & Occupation Living situation: Reports: with Significant Other ED ROS GENERAL - Review of Systems Review Of Systems: See Below Constitutional: Reports: Fever, Weakness, Fatigue HEENT: Reports: No Symptoms Respiratory: Reports: No Symptoms Cardiovascular: Reports: No Symptoms GI/Abdominal: Reports: Nausea, Vomiting Musculoskeletal: Reports: Muscle Pain ED EXAM, GENERAL - Physical Exam Exam: See Below Exam Limited By: No Limitations General Appearance: Alert, WD/WN, No Apparent Distress Respiratory/Chest: No Respiratory Distress, Lungs Clear, Normal Breath Sounds, No Accessory Muscle Use, Chest Non-Tender Cardiovascular: Regular Rate, Rhythm, No Murmur GI/Abdominal: Soft, Non-Tender Course - Vital Signs Last Recorded V/S: Last Vital Signs Temp 97.7 F 06/01/21 13:55 Pulse 79 06/01/21 13:55 Resp 16 06/01/21 13:55 BP 125/75 06/01/21 13:55 Pulse Ox 96 06/01/21 13:55 - Orders/Labs/Meds Orders: Active Orders 24 hr Category Date Time Status Isolation [COMM] Stat Oth 06/01/21 13:41 Ordered Labs: Laboratory Tests 06/01/21 Range/Units 13:51 Influenza Type A RNA Negative (NEGATIVE) RSV RNA (INAAT) Negative (NEGATIVE) Influenza Type B RNA Negative (NEGATIVE) SARS-CoV-2 RNA (FELIX) Positive H (NEGATIVE) Departure - Departure Time of Disposition: 15:21 Disposition: Home, Self-Care 01 Condition: Fair Clinical Impression: COVID-19 affecting in third trimester - Discharge Information Instructions: and COVID-19, 10 Things You Can Do to Manage Your COVID-19 Symptoms at Home - [facility] (02/10/2021) Referrals: Tessie Matamoros CNM [Primary Care Provider] - Additional Instructions: Please discuss this with your family members as well as your OB provider in order has been placed for the monoclonal antibody treatment which you are a candidate up to 10 days from first sign of symptoms Sepsis Event Note (ED) - Evaluation Sepsis Screening Result: No Definite Risk - Focused Exam Vital Signs: Vital Signs Temp Pulse Resp BP Pulse Ox 06/01/21 13:55 97.7 F 79 16 125/75 96 06/01/21 13:43 97.7 F 79 16 125/75 96 - My Orders Last 24 Hours: My Active Orders 06/01/21 13:41 Isolation [COMM] Stat - Assessment/Plan Last 24 Hours: My Active Orders 06/01/21 13:41 Isolation [COMM] Stat Plan: Assessment Acuity = acute Site and laterality = viral syndrome Etiology = COVID-19 Manifestations = none Location of injury = Home Lab values = Covid is positive influenza AMB negative RSV negative Plan Put an order in for monoclonal antibody therapy she is going to discuss this with family members she is only on day 2 of symptoms she also discussed with her OB provider This note was dictated using dragon voice recognition software please call with any questions on syntax or grammar.
== END 2021-06-01 15:55 | disposition home or self-care (01) ==
LOC: JP.ED 13:33
DX: O98.513 Other viral diseases complicating pregnancy, third trimester (principal); U07.1 COVID-19; Z87.891 Personal history of nicotine dependence; Z3A.32 32 weeks gestation of pregnancy
CPT/HCPCS: 0241U; 99284

== ENCOUNTER 2022-06-03 19:38 | Emergency (ER) | payer MEDICAID ==
[2022-06-03 19:54] VITALS: BP 115/58; PULSE 69
== END 2022-06-03 20:48 | disposition home or self-care (01) ==
LOC: JP.ED 19:38
DX: O21.9 Vomiting of pregnancy, unspecified (principal); R23.0 Cyanosis; Z3A.18 18 weeks gestation of pregnancy; E66.9 Obesity, unspecified; Z68.43 Body mass index [BMI] 50.0-59.9, adult; Z79.899 Other long term (current) drug therapy
CPT/HCPCS: 82947; 99283

== ENCOUNTER 2025-02-24 19:23 | Emergency (ER) | payer MEDICAID ==
[2025-02-24 19:36] VITALS: BP 177/81; PULSE 59
== END 2025-02-24 20:56 | disposition left against medical advice (07) ==
LOC: JP.ED 19:23
DX: Z53.21 Procedure and treatment not carried out due to patient leaving prior to being seen by health care provider (principal)

== ENCOUNTER 2025-03-11 07:02 | Day surgery (SDC) | payer MEDICAID ==
[2025-03-11] MEDS ORDERED: Propofol 200 MG/20 ML SDV ONE ×2 (07:43→10:28)
[2025-03-11] MEDS ORDERED: Midazolam 1 MG/ML 2 ML SDV ONE (07:43)
[2025-03-11] MEDS ORDERED: fentaNYL 50 MCG/ML SDV ONE (07:43)
[2025-03-11] MEDS: Lactated Ringers 1,000 ML IV SCH (08:26)
[2025-03-11 11:19] VITALS: PULSE 50
[2025-03-11 11:27] VITALS: BP 111/41
== END 2025-03-11 11:43 | disposition home or self-care (01) ==
LOC: JP.SDS 07:02
PROVIDERS: ATTEND Surgery
DX: K22.89 Other specified disease of esophagus (principal)
CPT/HCPCS: 00731; 43239; 87081; 88305; J2250; J2704; J3010; J7120